=== PATIENT | female | born 1965 | race American Indian/Alaskan Native ===

== ENCOUNTER 2017-07-16 17:44 | Emergency (ER) | payer MEDICARE ==
[2017-07-16 18:41] VITALS: BP 139/85
--- NOTE | 2017-07-16 20:41 | XRay Report ---
FINAL REPORT EXAM: XR KNEE 3V RT HISTORY: fall, pain, edema TECHNIQUE: Three views right knee Comparison: None FINDINGS: Normal bony mineralization. Medial greater than lateral joint space narrowing with femoral condylar squaring, tibial spine blunting and medial tibial plateau osteophytic spurring. No significant suprapatellar bursal effusion. Superior and inferior patellar pole enthesophytes and osteophytes. Prepatellar and infrapatellar soft tissue reticulation. IMPRESSION: Mild tricompartmental osteoarthritis. No definite acute fracture. Soft tissue reticulation prepatellar and infrapatellar.
--- NOTE | 2017-07-16 20:44 | XRay Report ---
FINAL REPORT EXAM: XR FOOT 3+V RT HISTORY: pain, injury, edema TECHNIQUE: Three views right foot Comparison: None FINDINGS: Pes planus. No hallux valgus great toe. No fracture or dislocation. Forefoot is normally aligned with the midfoot. Midfoot is normally aligned with the hindfoot. There is no ankle joint effusion identified. IMPRESSION: Pes planus. No acute foot pathology.
[2017-07-17] MEDS ORDERED: TORADOL IM ONE (02:17)
--- NOTE | 2017-07-17 02:17 | Emergency Department Report ---
ED Lower Extremity HPI - General Chief Complaint: Extremity Injury, Lower Stated Complaint: FALL Time Seen by Provider: 07/17/17 02:13 Source: patient Mode of arrival: Ambulatory Limitations: No Limitations - History of Present Illness Initial Comments: Patient here reports that she injured her right knee and right foot after her floor caved in at her house. She said her knee and foot got stuck and she is having pain and swelling. Haven't to 9 out of 10 that is worse with movement better with rest. She says she did not take any medication. She said this happened in the afternoon. Patient denies any medical problems. Denies any numbness or tingling to extremities. Denies any head injury or neck injury. Denies any back pain. No radiation of pain above the knee. Denies any laceration or abrasion. MD Complaint: knee injury, foot injury -: This afternoon Injury: Knee: Right (pain and swelling after injury), Foot: Right (pain and swelling after injury) Type of Injury: other (floor caved in at her house and injured her right knee and right foot) Place: home Severity: severe Severity scale (0 -10): 9 Improves With: immobilization, rest Worsens With: weight bearing, movement, palpation Context: walking Associated Symptoms: swelling, ambulatory. denies: numbness, tingling, unable to bear weight, able to partially bear weight Treatments Prior to Arrival: other (none) - Related Data Home Medications Medication Instructions Recorded Confirmed Last Taken traMADol [Ultram 50 MG tab] 50 mg PO PRN PRN 07/19/15 07/19/15 Unknown Previous Rx's Medication Instructions Recorded Last Taken Type Ibuprofen [Motrin] 600 mg PO Q8H PRN #12 tablet 07/17/17 Unknown Rx Allergies Allergy/AdvReac Type Severity Reaction Status Date / Time hydrocodone Allergy Hives Verified 07/19/15 16:08 ED Review of Systems ROS: Stated complaint: FALL Other details as noted in HPI Comment: All other systems reviewed and negative Constitutional: no symptoms reported Respiratory: no symptoms reported Cardiovascular: denies: chest pain, palpitations, dyspnea on exertion, edema, syncope, paroxysmal nocturnal dyspnea Gastrointestinal: denies: abdominal pain, nausea, vomiting Genitourinary: denies: dysuria, hematuria Musculoskeletal: joint swelling, arthralgia. denies: back pain, myalgia Skin: denies: rash Neurological: denies: headache, numbness, paresthesias, abnormal gait, vertigo ED Past Medical Hx - Past Medical History Previous Medical History?: No - Surgical History Past Surgical History?: No - Family History Family history: no significant - Social History Smoking Status: Never Smoker Substance Use Type: None - Medications Home Medications: Home Medications Medication Instructions Recorded Confirmed Last Taken Type traMADol [Ultram 50 MG tab] 50 mg PO PRN PRN 07/19/15 07/19/15 Unknown History Ibuprofen [Motrin] 600 mg PO Q8H PRN #12 tablet 07/17/17 Unknown Rx ED Physical Exam - General Limitations: No Limitations General appearance: alert, in no apparent distress - Head Head exam: Present: atraumatic, normocephalic, normal inspection - Eye Eye exam: Present: normal appearance, PERRL, EOMI Pupils: Present: normal accommodation - ENT ENT exam: Present: normal exam, normal orophraynx - Neck Neck exam: Present: normal inspection, full ROM, other (no C-spine tenderness). Absent: tenderness, meningismus, lymphadenopathy, thyromegaly - Respiratory Respiratory exam: Present: normal lung sounds bilaterally. Absent: respiratory distress, chest wall tenderness - Cardiovascular Cardiovascular Exam: Present: regular rate, normal rhythm, normal heart sounds. Absent: systolic murmur, diastolic murmur - GI/Abdominal GI/Abdominal exam: Present: soft, normal bowel sounds. Absent: distended, tenderness, guarding, rebound, rigid - Extremities Exam Extremities exam: Present: normal inspection, full ROM, normal capillary refill , pedal edema, joint swelling, other (no clubbing, cyanosis. Patient with trace swelling to right foot and right knee. Positive pulses all extremities. No neurovascular compromise). Absent: tenderness, calf tenderness - Expanded Lower Extremity Exam Right Hip exam: Present: normal inspection, full ROM, pelvic stability. Absent: tenderness, swelling, abrasion, laceration, ecchymosis, deformity, crepidus, dislocation, erythema, external rotation, internal rotation, shortening Upper Leg exam: Present: normal inspection, full ROM. Absent: tenderness, swelling, abrasion, laceration, ecchymosis, deformity, crepidus, dislocation, erythema Knee exam: Present: normal inspection, full ROM (Pain with active range of motion), tenderness, swelling, full knee extension. Absent: abrasion, laceration, ecchymosis, deformity, crepidus, dislocation, erythema, effusion, pain w/ pronation/supination, posterior draw sign, pain/laxity with valgus, pain /laxity with varus Lower Leg exam: Present: normal inspection, full ROM. Absent: tenderness, swelling, abrasion, laceration, ecchymosis, deformity, crepidus, dislocation, erythema, palpable cord, Chuckie's sign Foot/Toe exam: Present: full ROM, tenderness, swelling. Absent: normal inspection, abrasion, laceration, ecchymosis, deformity, crepidus, dislocation, erythema, amputation, puncture wound, foreign body, calcaneal tenderness, tenderness at base of 5th metatarsal, nail avulsion, subungual hematoma Neuro vascular tendon exam: Present: no vascular compromise. Absent: pulse deficit, abnormal cap refill, motor deficit, sensory deficit, tendon deficit, extremity cold to touch, pallor, abnormal 2-point discrimination, decreased fine /light touch, foot drop, peroneal nerve deficit, significant pain with passive ROM of distal joint Gait: Positive: observed and limited by pain - Back Exam Back exam: Present: normal inspection, full ROM, other (ambulates without any difficulties). Absent: tenderness, CVA tenderness (R), CVA tenderness (L), muscle spasm, paraspinal tenderness, vertebral tenderness, rash noted - Neurological Exam Neurological exam: Present: alert, oriented X3, normal gait, reflexes normal. Absent: motor sensory deficit - Psychiatric Psychiatric exam: Present: normal affect, normal mood - Skin Skin exam: Present: warm, dry, intact, normal color. Absent: rash ED Course Vital Signs 07/16/17 07/16/17 18:35 18:40 Temperature 98.6 F Pulse Rate 88 Respiratory 16 Rate Blood Pressure 139/85 [Right] O2 Sat by Pulse 100 Oximetry - Reevaluation(s) Reevaluation #1: 07/17/17 02:40 Patient received Toradol 60 mg IM for pain to right knee and right foot. See procedure note for details on spread. - Orthopedic Splinting/Casting Injury #1 Side: right Lower Extremity Injury Location: knee Lower Extremity Immobilizer: Mal wrap ED Lower Extremity MDM - Radiology Data Radiology results: report reviewed X-ray 3 view of right knee reveals supple. Inferior patellar pole enthesophytes and osteophytes. Mild tricompartmental osteoarthritis. Soft tissue rectal chelation prepatellar and infrapatellar X-ray three-view right foot revealed no acute foot pathology . Patient would pes planus which is flat foot - Medical Decision Making ED course: Patient status post injury at home. She said her floor caved in and her right lower extremity when through floor. She is here complaining of right knee pain and swelling in left foot pain and swelling. X-ray finding for tricompartmental osteoarthritis, mild to right knee with some soft tissue swelling and PES PLANUS right foot without any fracture or dislocation to right knee or right foot. This is explained to patient in detail and she was understanding. I discussed with her [facility] therapy and that she will need to follow up with orthopedic doctor for right knee sprain. Patient was given Toradol 60 mg by mouth in emergency room for relief of pain. See procedure note and details are splinted. Patient discharged home with her family with prescription for Motrin and follow-up with Dr. Vallecillo who is her primary care doctor and if her pain to her knee and foot is not better in 72 hours to follow up with orthopedic doctor. Critical care attestation.: If time is entered above; I have spent that time in minutes in the direct care of this critically ill patient, excluding procedure time. ED Disposition Clinical Impression: Flat foot [pes planus] (acquired), right foot, Arthralgia of multiple sites Sprain of right knee Qualifiers: Encounter type: initial encounter Involved ligament of knee: unspecified ligament Qualified Code(s): S83.91XA - Sprain of unspecified site of right knee , initial encounter Tricompartment degenerative joint disease of knee Qualifiers: Laterality: right Qualified Code(s): M17.11 - Unilateral primary osteoarthritis , right knee Disposition: DC-50 TO HOSPICE (HOME) Is pt being admited?: No Does the pt Need Aspirin: No Condition: Stable Instructions: Knee Exercises (GEN), Knee Sprain (ED), RICE Therapy (ED), Musculoskeletal Pain (ED), Osteoarthritis (ED) Additional Instructions: Please follow-up with your primary care physician in 2-3 days Please see referral to orthopedic doctor and call tomorrow to schedule an appointment for follow-up visit knee sprain. Follow discharge instruction in Rice therapy Take Motrin to help with pain and swelling. Rest affected area for 72 hours Prescriptions: Ibuprofen [Motrin] 600 mg PO Q8H PRN #12 tablet PRN Reason: Pain Referrals: ZABRINA VALLECILLO MD [Primary Care Provider] - 2-3 Days CELINA ADAN MD [Staff Physician] - 2-3 Days Forms: Accompanied Note, Work/School Release Form(ED)
== END 2017-07-17 03:29 | disposition hospice, home (50) ==
LOC: ED 17:44
DX: S83.91XA Sprain of unspecified site of right knee, initial encounter (principal); M17.11 Unilateral primary osteoarthritis, right knee; M21.41 Flat foot [pes planus] (acquired), right foot; Z88.5 Allergy status to narcotic agent; X58.XXXA Exposure to other specified factors, initial encounter; Y93.01 Activity, walking, marching and hiking; Y99.8 Other external cause status; Y92.009 Unspecified place in unspecified non-institutional (private) residence as the place of occurrence of the external cause
CPT/HCPCS: 73562; 73630; 96372; 99283; J1885

== ENCOUNTER 2021-09-12 10:00 | Emergency (ER) | payer MEDICARE ==
[2021-09-12 10:57] VITALS: BP 166/104
== END 2021-09-12 17:45 | disposition left against medical advice (07) ==
LOC: ED 10:00
DX: L02.91 Cutaneous abscess, unspecified (principal); Z53.21 Procedure and treatment not carried out due to patient leaving prior to being seen by health care provider